=== PATIENT | female | born 1985 | race Caucasian/White ===

== ENCOUNTER 2016-06-17 11:19 | Inpatient (IN) ==
[2016-06-17] MEDS ORDERED: Ringers Solution, Lactated 1,000 ML ONE (11:34)
[2016-06-17] MEDS ORDERED: Famotidine 20 MG/2 ML VIAL IVP ONE (11:35)
[2016-06-17] MEDS ORDERED: Oxytocin 20 units/ LR 1000 mL 20 UNIT/1,000 ML BAG IVC ONE (11:35)
[2016-06-17] MEDS ORDERED: Metoclopramide 10 MG/2 ML VIAL IVP ONE (11:35)
[2016-06-17] MEDS ORDERED: Ringers Solution, Lactated 1,000 ML IVC ONE (11:35)
[2016-06-17] MEDS ORDERED: CeFAZolin Pre 2,000 MG/100 ML 2,000 MG/100 ML BAG IVPB ONE (11:35)
--- NOTE | 2016-06-17 11:42 | OB/GYN History & Physical ---
Date of Encounter: 06/17/16 Time of Encounter: 11:40 Assessment and Plan (1) and not yet delivered in third trimester Current visit: Yes Status: Acute (2) 37 weeks gestation of Current visit: Yes Status: Acute (3) Previous section complicating Current visit: Yes Status: Acute We will prepare the patient for repeat low transverse section (4) Active labor at term Current visit: Yes Status: Acute (5) Positive GBS test Current visit: Yes Status: Acute History of Present Illness HPI: Ms. Sales is a 30 year old female 2 para 1 at 37 and one sevenths weeks by last menstrual period equal to 9-1/7 week ultrasound who presented to labor and delivery from the office secondary to advanced cervical dilatation with history of previous section. Patient was 5 cm 90% -2 when examined in the office feeling vaginal pressure. Patient was seen in the office last week which was noted to be 1-2 cm. She complained of some vaginal bleeding since the week before when I examined her and she was closed and thick at that time. Patient was taken off work put on absolute bedrest and had her come in today in the office. Patient states that she been having cramping and pressure throughout the weekend and it made significant cervical change. Because she is a repeat section she was sent immediately over to labor and delivery for a repeat section. Patient's GBS status was positive denies any leaking of fluid. Past Med Surg Social Fam HX - Past Medical History Source: patient, old records reviewed - Past Surgical History Surgical History: (Low transverse section) - Social History Smoking Status: Never smoker Smokeless Tobacco Status: No Alcohol use: none Drug use: none Occupational status: employed Current living situation: Home - Independent Activity Level: Independent ambulation Recent Out of Country Travel Within the Last 8 Weeks: No Exposure or Possible Exposure to Illness During Travel: No - Additional Family History Additional family history: Family history noncontributory Obstetrical History - Pregnancies : 2 Para: 1 Term: 1 Livin Medications and Allergies Caplet 1 tab PO DAILY 06/17/16 [History] Allergies No Known Allergies Allergy (Verified 06/17/16 11:51) Review of System OB All systems PM: reviewed and no additional remarkable complaints except as stated - Genitourinary Genitourinary: other (Complaining of vaginal spotting and vaginal pressure) Exam - Constitutional Constitutional: well developed, well nourished, average body habitus, mild distress - HEENT HEENT: PERRL - Neck Neck exam: full ROM - Lungs Respiratory exam: CTAB - Cardiovascular Cardiovascular exam: RRR - Abdomen Abdomen: Present: gravid - Vagina Vagina: Present: normal moisture - Cervix Dilation: 5 Effacement: 90 Station: -2 - Comments Comments: heart tones 140s reactive occasional contractions seen Results Result Diagrams: 06/17/16 11:40 All other labs normal. - VTE Reasons for not Prescribing Prophylaxis: Treatment not Indicated - Low risk for VTE
[2016-06-17] MEDS ORDERED: Ringers Solution, Lactated 1,000 ML IVC SCH ×2 (11:45→16:20)
[2016-06-17 11:50] LABS: Basophils % 0.4 %; Eosinophils # 0.1 K/mcL (0.0-0.6); Eosinophils % 0.9 %; Hematocrit 39.7 % (35.3-44.9); Hemoglobin 13.8 g/dL (11.5-15.4); Immature Granulocytes % 0.4 % (0-4); Lymphocytes # 1.9 K/mcL (0.6-4.6); Lymphocytes % 16.7 %; Mean Corpuscular HGB Conc 34.8 g/dL (31.6-35.5); Mean Corpuscular Hemoglobin 29.7 pg (28.0-33.3); Mean Corpuscular Volume 85.4 fL (83.0-100.0); Mean Platelet Volume 9.7 fL (9.4-12.4); Monocytes # 0.8 K/mcL (0.0-1.3); Monocytes % 6.6 %; Neutrophils # 8.5 K/mcL (1.6-8.9); Platelet Count 228 K/mcL (140-400); Red Blood Count 4.65 M/mcL (3.82-4.97); Red Cell Distribution Width 12.9 % (11.5-14.5)
--- NOTE | 2016-06-17 12:07 | Anesthesia Evaluation PreOp ---
Date of Encounter: 06/17/16 Time of Encounter: 11:56 - Past History Planned Operation: Repeat C- Section Cardiac History: Denies any Significant Hx Pulmonary History: Denies Any Significant HX SECTION PLOTTER OPERATOR History: Denies Any Significant HX Other Medical History: GERD Anesthesia History: No Prior Anesthetic Complications, Past Anesthesia : Yes (, IUP 37+1 weeks) Alcohol Use: none Drug use: none Medications and Allergies Allergies No Known Allergies Allergy (Verified 06/17/16 11:51) - Meds/Allergy Pre-op Review Medications Reviewed: Yes Allergies Reviewed: Yes Beta Blockers on Current Med List: No Anesthesia Results - Labs 06/17/16 11:40 Anesthesia Exam 3 Vital Signs BP 118/60 Pulse 92 Resp 18 Temp 98.4 Height: 5'2'' Weight: 375 lbs NPO (# of Hours): 8 Pain Scale: 0 Pain Scale Used: Numeric (1 - 10) - HEENT Pupil (Motor): EOMI Mallampati: II Teeth: Normal Oral Opening: Greater than 3 - SECTION PLOTTER OPERATOR LOC: Oriented SECTION PLOTTER OPERATOR Motor: Normal RUE, Normal LUE, Normal RLE, Normal LLE, Normal Face SECTION PLOTTER OPERATOR Sensory: Normal: RLE, LLE, Face, Deficit: RUE (tingling in hand), LUE ( tingling in hand) - Cardiac Rhythm: Regular Murmur: None - Pulmonary Breath Sounds: bilateral Clear Respiratory Effort: Symmetrical Anesthesia Assess/Plan ASA Score: 2 Modified Vale Scale for Level of Consciousness: Cooperative, oriented, and tranquil Anesthetic Plan: Regional Monitoring Plan: Standard Monitors Recovery Plan: PACU
--- NOTE | 2016-06-17 12:31 | OB/GYN Procedure Note ---
Section - Date of procedure: 06/17/16 Preop diagnosis: desires repeat , other (active labor, 37 wks ) Post-op diagnosis: same Procedure: repeat low transverse Surgeon: Darci Guy Estimated blood loss (cc): 500 Go Go Dancer: Sonia Nguyen ([id number]) Anesthesiologist: Donte Brunner Printed Circuit Board Pcb Draftsman: Karthik Owens Anesthesia Type: Spinal section complications: none Disposition: L&D Recovery Room Specimens: Cord blood - (s) A Infant Delivery Date: 06/17/16 Infant Delivery Time: 13:05 Presentation: vertex Position: LACY Route of delivery: other ( section) Gender: Male Viability: Viable Pounds: 7 Ounces: 3 Gram Weight: 3.255 kg at 1 minute: 8 at 5 minutes: 9 Shoulder Dystocia: not encountered Specimens collected: cord blood Placenta: complete extraction Cord: nuchal cord - Narrative Narrative: Patient is a 30-year-old 2 para 1 at 37 and one sevenths weeks who presented to labor and delivery from the office in active labor. Patient is a previous section and was noted to be 5 cm in the office. She was sent over to labor and delivery dedrick every 2 minutes. Because she is a previous section repeat has been called. Patient is GBS positive membranes are intact. Procedure: Patient was taken operating room where spinal anesthesia was found be adequate. She was placed in the dorsal supine position with leftward tilt prepped and draped in usual fashion. Timeout was obtained. A Pfannenstiel incision was made with a scalpel and carried down through the underlying tissue to the fascia was identified. Fascia was nicked in the midline and extended laterally with the Caceres scissors. The superior and inferior edges of the fascia were grasped tented up and dissected off the rectus muscles. Rectus muscles were in midline parietal peritoneum was identified tented up and entered sharply. This was extended superiorly and inferiorly with Metzenbaum scissors. Bladder blade was inserted and vesicouterine peritoneum was identified tented up and it sharply. This was extended laterally then the Bladder flap was created digitally. The lower uterine segment was incised with a scalpel and extended laterally with digital manipulation. Membranes are ruptured 's head was then delivered followed by delivery of the body. The cord was clamped and cut was handed off to waiting pediatric team. Cord blood was collected placenta was then manually removed uterus was exteriorized and cleaned of all clots and debris. The lower uterine segment was closed using 0 Vicryl in a running locking stitch by a 2 layer closure. Good hemostasis was noted uterus was returned to the abdomen and gutters were cleansed of all clots and debris and copiously irrigated. No active bleeding was noted the fascia was closed using a #1 stratafix suture in a running stitch and the skin was closed using 4-0 Vicryl in subcuticular manner. All needles and sponge counts were correct 3 she did receive preoperative antibiotics.
[2016-06-17] MEDS ORDERED: *HR* FentaNYL (PF) 100 MCG/2 ML VIAL ONE (12:37)
[2016-06-17] MEDS ORDERED: *HR* Oxytocin 10 UNIT/ML VIAL IM ONE (12:37)
[2016-06-17] MEDS ORDERED: *HR* Phenylephrine 10 MG/ML VIAL ONE (12:37)
[2016-06-17] MEDS ORDERED: EPHEDrine 50 MG/ML VIAL ONE (12:37)
[2016-06-17] MEDS ORDERED: *HR* Morphine Sulfate/PF 5 MG/10 ML AMPUL ONE (12:37)
[2016-06-17] MEDS ORDERED: *HR* HYDROmorphone (PF) 1 MG/ML SYRINGE IVP PRN ×2 (13:14→14:55)
[2016-06-17] MEDS ORDERED: *HR* Morphine 2 MG/ML SYRINGE IVP PRN (14:55)
--- NOTE | 2016-06-17 14:55 | Anesthesia Evaluation Post Op ---
Date of Encounter: 06/17/16 Time of Encounter: 14:54 - Vital Signs Vital Signs: 110/70, hr 90 99% - Lungs Lungs: Clear Ascult./Percussion - Airway Airway: Non-obstructed - Cardiovascular Regular Rate, Baseline Rhythm - Mental Status Mental Status: Alert & Oriented, Answers Appropriately - Pain Pain Scale: 0 Pain Scale used: Numeric (1 - 10) - Nausea Vomiting Nausea Vomiting: Not Present - Hydration Hydration: Ice chips, Lara catheter Notes: 06/17/16 14:54 pt - Discharge PostOp Status: Transfer Patient to floor
[2016-06-17] MEDS ORDERED: Simethicone 80 MG TAB.CHEW PO PRN (16:20)
[2016-06-17] MEDS ORDERED: Metoclopramide 10 MG/2 ML VIAL IVP PRN (16:20)
[2016-06-17] MEDS ORDERED: Ondansetron 4 MG/2 ML VIAL IVP PRN (16:20)
[2016-06-17] MEDS ORDERED: Sennosides 8.6 MG TABLET PO PRN (16:20)
[2016-06-17] MEDS ORDERED: Rho Immune Globulin 1,500 UNIT SYRINGE IM ONE (16:20)
[2016-06-17] MEDS ORDERED: *HR* OxyCODONE/APAP 10/325 TABLET PO PRN (16:20)
[2016-06-17] MEDS: *HR* OxyCODONE/APAP 5/325 TABLET PO PRN ×2 (18:35→23:54)
[2016-06-17] MEDS: Oxytocin 20 units/ LR 1000 mL 20 UNIT/1,000 ML BAG IV SCH (19:56)
[2016-06-17] MEDS: Ibuprofen 600 MG TABLET PO PRN (19:56)
[2016-06-18] MEDS: Oxytocin 20 units/ LR 1000 mL 20 UNIT/1,000 ML BAG IV SCH (04:01)
[2016-06-18] MEDS: *HR* OxyCODONE/APAP 5/325 TABLET PO PRN ×3 (06:01→20:25)
[2016-06-18 06:50] LABS: Basophils % 0.4 %; Eosinophils % 0.4 %; Hematocrit 33.7 % (35.3-44.9); Immature Granulocytes % 0.5 % (0-4); Lymphocytes # 1.3 K/mcL (0.6-4.6); Lymphocytes % 12.1 %; Mean Corpuscular HGB Conc 34.1 g/dL (31.6-35.5); Mean Corpuscular Hemoglobin 29.6 pg (28.0-33.3); Mean Corpuscular Volume 86.6 fL (83.0-100.0); Mean Platelet Volume 9.5 fL (9.4-12.4); Monocytes # 0.7 K/mcL (0.0-1.3); Monocytes % 6.3 %; Neutrophils # 8.6 K/mcL (1.6-8.9); Platelet Count 172 K/mcL (140-400); Red Blood Count 3.89 M/mcL (3.82-4.97); Red Cell Distribution Width 12.9 % (11.5-14.5); Segmented Neutrophils % 80.3 %
[2016-06-18 06:52] LABS: Hemoglobin 11.5 g/dL (11.5-15.4)
[2016-06-18] MEDS: Ibuprofen 600 MG TABLET PO PRN ×3 (07:58→22:34)
[2016-06-18] MEDS ORDERED: NON-FORMULARY MEDICATION 1 EACH EACH (Prenatal Caplet 1 TAB) PO SCH (09:00)
[2016-06-18] MEDS ORDERED: Prenatal Vit/FA 1 EACH TABLET PO SCH (09:00)
--- NOTE | 2016-06-18 10:25 | OB/GYN Progress Note ---
Date of Encounter: 06/18/16 Time of Encounter: 10:23 - Assessment and Plan (1) S/P section Current Visit: Yes Status: Acute Pt meeting POD#1 milestones. Anticipate discharge home POD#2-3. Subjective - Subjective Interval history: Pt reprots light lochia. She is tolerating regular diet. Not yet passing gas. Patient reports: appetite normal, voiding normally, pain well controlled, ambulating normally [place]: doing well Objective - Vital Signs Latest vital signs: Vital Signs Temp Pulse Resp BP Pulse Ox 06/18/16 08:05 97.8 F 88 16 104/63 97 06/18/16 03:20 98.4 F 101 14 109/70 95 06/18/16 00:00 99.1 F 98 14 123/68 96 06/17/16 19:30 99.3 F 86 14 121/68 96 06/17/16 18:34 98.6 F 99 16 124/69 06/17/16 17:30 99.0 F 116 16 114/63 06/17/16 17:00 98.8 F 111 16 126/67 06/17/16 16:30 98.6 F 106 16 123/71 96 Intake and Output 06/17/16 06/18/16 06/18/16 23:59 07:59 15:59 Intake Total 1100 / 1100 Output Total 400 / 400 600 / 600 Balance -400 / -400 500 / 500 Intake: IV Fluids 1000 / 1000 Pitocin 20 unit In 1,000 1000 / 1000 ml @ 125 mls/hr IV .Q8H PENDING SALE TO [facility] Rx#:[id number] Oral 100 / 100 Output: Catheter 400 / 400 600 / 600 Other: Weight 71.7 kg 75 kg Patient Weight 06/18/16 23:59 Weight 75 kg - Exam Lungs: bilateral: normal Chest: Normal S1, Normal S2 Extremities: Present: normal Abdomen: Present: soft. Absent: tenderness Incision: Present: dressed (dressing dry and intact) Uterus: Present: firm - Labs Labs: Laboratory Results - last 24 hr 06/17/16 06/17/16 06/18/16 11:40 14:00 06:30 WBC 11.3 H 10.7 RBC 4.65 3.89 Hgb 13.8 11.5 D Hct 39.7 33.7 L MCV 85.4 86.6 MCH 29.7 29.6 MCHC 34.8 34.1 RDW 12.9 12.9 Plt Count 228 172 MPV 9.7 9.5 Immature Gran % 0.4 0.5 Seg Neutrophils % 75.0 80.3 Lymphocytes % 16.7 12.1 Monocytes % 6.6 6.3 Eosinophils % 0.9 0.4 Basophils % 0.4 0.4 Neutrophils # 8.5 8.6 Lymphocytes # 1.9 1.3 Monocytes # 0.8 0.7 Eosinophils # 0.1 0.0 Basophils # 0.0 0.0 Baby's Blood Type A RH POSITIVE Mother's Blood Type A RH NEGATIVE Rhogam Indicated YES
[2016-06-18] MEDS ORDERED: Rho Immune Globulin 1,500 UNIT SYRINGE IM ONE (13:19)
[2016-06-19] MEDS: *HR* OxyCODONE/APAP 5/325 TABLET PO PRN ×3 (04:45→15:56)
[2016-06-19] MEDS: Ibuprofen 600 MG TABLET PO PRN ×2 (05:34→12:07)
[2016-06-19 08:45] VITALS: BP 100/62
--- NOTE | 2016-06-19 13:07 | Discharge Summary ---
Date of Encounter: 06/19/16 Time of Encounter: 13:04 - Discharge Diagnosis (1) S/P section Priority: Primary Status: Acute Comments: Pt meeting post-op milestones. - Discharge Medications Prescriptions: OxyCODONE/APAP 5/325 [Percocet 5/325 MG] 1 each PO Q4HR PRN #30 tablet PRN Reason: Moderate pain 4-6 Ibuprofen [Motrin] 600 mg PO Q6HR PRN #60 tablet PRN Reason: Cramping Docusate [Colace] 100 mg PO BID #60 capsule Home Medications: Caplet 1 tab PO DAILY 06/17/16 [History] Docusate [Colace] 100 mg PO BID #60 capsule 06/19/16 [Rx] Hydrocortisone 1% CREAM [Cortaid] 1 appl TP BID PRN #0 bottle 06/19/16 [Rx] Ibuprofen [Motrin] 600 mg PO Q6HR PRN #60 tablet 06/19/16 [Rx] Mupirocin [Bactroban Oint] 1 appl TP BID tube 06/19/16 [Rx] OxyCODONE/APAP 5/325 [Percocet 5/325 MG] 1 each PO Q4HR PRN #30 tablet 06/19/16 [Rx] Simethicone [Gas-X] 80 mg PO TID PRN #0 tab.chew 06/19/16 [Rx] Allergies/Adverse Reactions: Allergies No Known Allergies Allergy (Verified 06/17/16 11:51) Data Procedures and tests throughout hospitalization: Laboratory Tests 06/17/16 06/17/16 06/18/16 11:40 14:00 06:30 WBC 11.3 H 10.7 RBC 4.65 3.89 Hgb 13.8 11.5 D Hct 39.7 33.7 L MCV 85.4 86.6 MCH 29.7 29.6 MCHC 34.8 34.1 RDW 12.9 12.9 Plt Count 228 172 MPV 9.7 9.5 Immature Gran % 0.4 0.5 Seg Neutrophils % 75.0 80.3 Lymphocytes % 16.7 12.1 Monocytes % 6.6 6.3 Eosinophils % 0.9 0.4 Basophils % 0.4 0.4 Neutrophils # 8.5 8.6 Lymphocytes # 1.9 1.3 Monocytes # 0.8 0.7 Eosinophils # 0.1 0.0 Basophils # 0.0 0.0 Screen NEGATIVE Baby's Blood Type A RH POSITIVE Mother's Blood Type A RH NEGATIVE Rhogam Indicated YES Rhogam Req for Mother 1 Date of admission: 06/17/16 11:19 Primary care physician: Marcial Lopez Discharging clinician: Tammy Frank Anticipated date of discharge: 06/19/16 - Patient Status Disposition: Home, Self-Care Condition: Good Functional capacity at discharge: independent ambulation Overall status at discharge: patient is progressing back to baseline - Discharge Instructions Follow Up With: Marcial Lopez DO [Primary Care Provider] - Darci Guy DO [Partnered Physician] - - Diet and Activity Activity: increase activity as tolerated Diet: advance to your usual diet Hospital Course Reason for admission: active labor, section Delivery: section Episiotomy: none Laceration: none Other procedures: none complications: none Discharge diagnosis: IUP at term delivered [place] baby: male Hospital course: - Date of procedure: 06/17/16 Preop diagnosis: desires repeat , other (active labor, 37 wks ) Post-op diagnosis: same Procedure: repeat low transverse Surgeon: Darci Guy Estimated blood loss (cc): 500 Batch Or Continuous Still Operator: Sonia Nguyen ([email or web address]) Anesthesiologist: Donte Brunner Drill Rig Operator: Karthik Owens Anesthesia Type: Spinal section complications: none Disposition: L&D Recovery Room Specimens: Cord blood - Infant (s) A Delivery Date: 06/17/16 Delivery Time: 13:05 Presentation: vertex Position: LACY Route of delivery: other ( section) Gender: Male Viability: Viable Pounds: 7 Ounces: 3 Gram Weight: 3.255 kg at 1 minute: 8 at 5 minutes: 9 Shoulder Dystocia: not encountered Specimens collected: cord blood Placenta: complete extraction Cord: nuchal cord Time Attestation: Total time spent providing and/or coordinating discharge services: - VTE Reasons for not Prescribing Prophylaxis: Treatment not Indicated - Low risk for VTE Documentation of Mechanical Device: Intermittent pneumatic compression device Exam - Constitutional Vitals: Temp Pulse Resp BP Pulse Ox 97.7 F 76 16 100/62 97 06/19/16 08:43 06/19/16 08:43 06/19/16 08:43 06/19/16 08:43 06/19/16 08:43 General appearance IM: A&O X 3, pleasant, no acute distress - Respiratory Respiratory exam: Present: CTAB - Cardiovascular Cardiovascular exam IM: Present: RRR, +S1, +S2 - GI/Abdominal GI/Abdominal exam IM: soft Incision: intact - External exam: normal external exam Uterine Tone: Firm Uterus Position: 1 Finger Below Umbilicus - Extremities Exam Extremities exam IM: Present: normal inspection, pedal edema (1+ bilaterally) - Neurological Exam Neurological exam: normal gait, oriented X3 - Psychiatric Additional comments: reports good mood
== END 2016-06-19 16:00 | disposition home or self-care (01) | DRG 766 ==
LOC: 1NENULAB → OBSVTOIN 11:19 → 1NENUOBS 16:17
PROVIDERS: ADMIT Obstetrics & Gynecology; ATTEND Obstetrics & Gynecology